=== PATIENT | male | born 1965 | race African-American/Black ===

== ENCOUNTER 2017-01-05 17:01 | Inpatient (IN) | payer MEDICARE, MEDICAID ==
[~2017-01-05] VITALS: Ht 177.8 cm; Wt 134.7 kg
[~2017-01-05 17:01] MED LIST: BALANCED SALT IRRIG SOLN 15ML ONE; BENA1TAB2 PO; BUPIVACAINE HCL/PF 0.75% (7.5MG/ML) 10ML ONE; BUSP15TA3 PO; CALC-1042 PO; CEPH-569 PO; CHOL400T11 PO; CIPR1DRO2 OP; CIPROFLOXACIN 0.3% OPHTH SOLN 2.5ML ONE; GABA-531 PO; LIDOCAINE HCL 2%/EPINEPHRINE 1:100,000 20 ML VIAL INFIL ONE; METF500T4 PO; METH50TA5 PO; NEO/3.5O OP; NEO/POLYMYX B SULF/DEXAMETH OPHTH OINT 3.5GM ONE; NEPT50 PO; PRED1DRO OP; PREDNISOLONE ACETATE 1% OPHTH DROPS 1ML ONE; SULF-165 PO
[2017-01-05] MEDS ORDERED: MORPHINE SULFATE 4 MG/ML CPJ (NOT FOR IM USE) IV ONE (17:15)
[2017-01-05] MEDS ORDERED: CEFAZOLIN 1000MG PREMIX 50 ML IV ONE (17:15)
[2017-01-05] MEDS ORDERED: MORPHINE SULFATE 2 MG/ML CPJ (NOT FOR IM USE) IV ONE (17:43)
[2017-01-05 18:15] LABS: BASOPHILS % 1.4 % (0.0-2.0); EOSINOPHILS % 1.8 % (0.0-5.0); HEMATOCRIT. 42.3 % (42.0-52.0); HEMOGLOBIN. 14.3 g/dL (14.0-18.0); LYMPHOCYTES % 35.7 % (20.0-50.0); MEAN CORPUSCULAR HEMOGLOBIN 32.9 pg (28.0-32.0); MEAN CORPUSCULAR VOLUME 97.5 fL (80.0-94.0); MONOCYTES % 10.1 % (2.0-8.0); PLATELET 183 x1000/uL (130-400); RED BLOOD CELL COUNT 4.33 mill/uL (4.7-6.1); RED CELL DISTRIBUTION WIDTH 12.1 % (11.6-14.6)
[2017-01-05 18:29] LABS: CARBON DIOXIDE 24 mEq/L (21-32); CHLORIDE 111 mEq/L (98-107)
[2017-01-05] MEDS ORDERED: HYALURONATE SODIUM 14 MG/ML 0.85ML SYRINGE IO ONE (21:05)
[2017-01-05] MEDS ORDERED: MEPERIDINE HCL/PF 25MG/ML CPJ IV PRN (22:00)
[2017-01-05] MEDS ORDERED: LABETALOL HCL 20MG/4ML CARPUJECT IV PRN (22:00)
[2017-01-05] MEDS ORDERED: ONDANSETRON HCL 4MG/2ML VIAL IV PRN ×2 (22:00→22:30)
[2017-01-05] MEDS ORDERED: HYDROMORPHONE HCL/PF 2MG/ML CPJ IV PRN (22:00)
[2017-01-05] MEDS ORDERED: TRIAMCINOLONE ACETONIDE 40MG/ML 1ML VIAL ONE (22:12)
[2017-01-05] MEDS ORDERED: PROPOFOL 200MG/20ML VIAL IV ONE (22:24)
[2017-01-05] MEDS ORDERED: ROCURONIUM BROMIDE 10MG/ML VIAL 5ML IV ONE (22:24)
[2017-01-05] MEDS ORDERED: GLYCOPYRROLATE 0.2 MG/ML 2ML VIAL ONE ×2 (22:24→22:39)
[2017-01-05] MEDS ORDERED: NEOSTIGMINE METHYLSULFATE 1MG/ML 10 ML VIAL ONE (22:24)
[2017-01-05] MEDS ORDERED: SUCCINYLCHOLINE CHLORIDE 200MG/10ML VIAL IV ONE (22:24)
[2017-01-05] MEDS ORDERED: DEXAMETHASONE 4MG/ML 1ML VIAL ONE (22:24)
[2017-01-05] MEDS ORDERED: LIDOCAINE HCL 1% 20ML VIAL (Pyxis) INJ ONE (22:24)
[2017-01-05] MEDS ORDERED: ONDANSETRON HCL 4MG/2ML VIAL ONE (22:26)
[2017-01-05] MEDS ORDERED: DEXTROSE 50% WATER 50ML SYRINGE IV PRN (22:30)
[2017-01-05] MEDS ORDERED: DOCUSATE SODIUM 100MG CAPSULE PO PRN (22:30)
[2017-01-05] MEDS ORDERED: ZOLPIDEM TARTRATE 5MG TABLET PO PRN (22:30)
[2017-01-05] MEDS ORDERED: LORAZEPAM 0.5MG TABLET PO PRN (22:30)
[2017-01-05] MEDS ORDERED: IPRATROPIUM/ALBUTEROL 0.5-3(2.5)MG/3ML NEB INH PRN (22:30)
[2017-01-05] MEDS ORDERED: CLONIDINE 0.1MG TABLET PO PRN (22:30)
[2017-01-05] MEDS ORDERED: DIPHENHYDRAMINE 50MG/ML VIAL IV PRN (22:30)
[2017-01-05] MEDS ORDERED: ACETAMINOPHEN 325MG TABLET PO PRN (22:30)
[2017-01-05] MEDS ORDERED: NA PHOS,M-B/NA PHOS,DI-BA ENEMA 118ML PR PRN (22:30)
[2017-01-05] MEDS ORDERED: GUAIFENESIN 200MG/10ML SUGAR FREE UDC PO PRN (22:30)
[2017-01-05] MEDS ORDERED: TRAMADOL 50MG TABLET PO PRN (22:30)
[2017-01-05] MEDS ORDERED: MAGNESIUM/ALUMINUM HYDROXIDE/SIMETHICONE 30ML UDC PO PRN (22:30)
[2017-01-05] MEDS ORDERED: CEFAZOLIN SODIUM 1000MG/VIAL ONE (22:40)
[2017-01-05] MEDS ORDERED: SODIUM CHLORIDE 0.9% 10ML VIAL ONE (22:40)
[2017-01-06] VITALS (7 sets, daily range): BP systolic 97–130; BP diastolic 53–79
[2017-01-06] MEDS: BLOOD SUGAR DIAGNOSTIC STRIP TEST SCH ×4 (06:37→20:38)
[2017-01-06] MEDS: INSULIN LISPRO 100 UNITS/ML SUBCUT SCH ×4 (06:45→20:52)
[2017-01-06] MEDS: PREDNISOLONE ACETATE 1% OPHTH DROPS 1ML RIGHTEYE SCH ×6 (06:48→23:42)
[2017-01-06] MEDS: FAMOTIDINE 20MG/2ML VIAL IV SCH ×2 (08:18→20:48)
[2017-01-06] MEDS: CIPROFLOXACIN 0.3% OPHTH SOLN 2.5ML RIGHTEYE SCH ×4 (08:18→20:48)
[2017-01-06] MEDS: MORPHINE SULFATE 2 MG/ML CPJ (NOT FOR IM USE) IV PRN ×3 (09:49→20:50)
[2017-01-06] MEDS ORDERED: CEFAZOLIN 1000MG PREMIX 50 ML IV ONE (11:45)
[2017-01-06] MEDS: CEFAZOLIN 1000MG PREMIX 50 ML IV SCH ×2 (12:44→21:02)
[2017-01-06] MEDS: NEO/POLYMYX B SULF/DEXAMETH OPHTH OINT 3.5GM RIGHTEYE SCH (21:02)
[2017-01-07] VITALS: BP 103/70
[2017-01-07] MEDS: CEFAZOLIN 1000MG PREMIX 50 ML IV SCH ×3 (03:17→20:52)
[2017-01-07] MEDS: MORPHINE SULFATE 2 MG/ML CPJ (NOT FOR IM USE) IV PRN ×5 (03:18→20:57)
[2017-01-07 04:00] VITALS: BP 108/73
[2017-01-07] MEDS: PREDNISOLONE ACETATE 1% OPHTH DROPS 1ML RIGHTEYE SCH ×3 (05:45→18:25)
[2017-01-07] MEDS: BLOOD SUGAR DIAGNOSTIC STRIP TEST SCH ×4 (06:11→20:53)
[2017-01-07] MEDS: INSULIN LISPRO 100 UNITS/ML SUBCUT SCH ×4 (06:29→22:00)
[2017-01-07 08:00] VITALS: BP 110/74
[2017-01-07] MEDS: FAMOTIDINE 20MG/2ML VIAL IV SCH ×2 (08:27→20:53)
[2017-01-07] MEDS: CIPROFLOXACIN 0.3% OPHTH SOLN 2.5ML RIGHTEYE SCH ×4 (08:28→20:53)
[2017-01-07] MEDS: NEO/POLYMYX B SULF/DEXAMETH OPHTH OINT 3.5GM RIGHTEYE SCH ×3 (08:28→20:53)
[2017-01-07 10:06] VITALS: BP 104/70
[2017-01-07] MEDS: GABAPENTIN 300MG CAPSULE PO SCH ×2 (13:00→21:55)
[2017-01-07 20:00] VITALS: BP 111/57
[2017-01-08] VITALS: BP 103/70
[2017-01-08] MEDS: PREDNISOLONE ACETATE 1% OPHTH DROPS 1ML RIGHTEYE SCH ×3 (00:42→12:30)
[2017-01-08] MEDS: MORPHINE SULFATE 2 MG/ML CPJ (NOT FOR IM USE) IV PRN ×4 (00:43→12:40)
[2017-01-08 04:00] VITALS: BP 125/82
[2017-01-08] MEDS: CEFAZOLIN 1000MG PREMIX 50 ML IV SCH ×2 (06:00→12:30)
[2017-01-08] MEDS: GABAPENTIN 300MG CAPSULE PO SCH (06:01)
[2017-01-08] MEDS: BLOOD SUGAR DIAGNOSTIC STRIP TEST SCH ×2 (06:47→12:30)
[2017-01-08] MEDS: INSULIN LISPRO 100 UNITS/ML SUBCUT SCH ×2 (06:50→12:29)
[2017-01-08 07:30] VITALS: BP 122/80
[2017-01-08] MEDS: FAMOTIDINE 20MG/2ML VIAL IV SCH ×2 (08:06→09:43)
[2017-01-08] MEDS: NEO/POLYMYX B SULF/DEXAMETH OPHTH OINT 3.5GM RIGHTEYE SCH (08:06)
[2017-01-08] MEDS: CIPROFLOXACIN 0.3% OPHTH SOLN 2.5ML RIGHTEYE SCH ×2 (08:07→12:30)
[2017-01-08 12:19] VITALS: BP 126/92
[2017-01-08 13:27] VITALS: BP 124/77
== END 2017-01-08 15:00 | disposition home or self-care (01) | DRG 116 ==
LOC: ER 17:30 → ENRESERV 18:17 → 8WST 22:02 → EDBEDREQTM 22:13 → EDBEDREQ 22:13
PROVIDERS: ADMIT Internal Medicine; ATTEND Internal Medicine
PROC: 08Q8XZZ Repair Right Cornea, External Approach (ICD-10-PCS; 2017-01-05)
PROC: 08T43ZZ Resection of Right Vitreous, Percutaneous Approach (ICD-10-PCS; principal; 2017-01-05 21:05)
DX: S05.21XA Ocular laceration and rupture with prolapse or loss of intraocular tissue, right eye, initial encounter (principal); Z68.41 Body mass index [BMI] 40.0-44.9, adult; E11.9 Type 2 diabetes mellitus without complications; H54.62 Unqualified visual loss, left eye, normal vision right eye; I10 Essential (primary) hypertension; W22.8XXA Striking against or struck by other objects, initial encounter; H21.511 Anterior synechiae (iris), right eye; E66.9 Obesity, unspecified; Z94.7 Corneal transplant status; Y93.89 Activity, other specified; Y92.89 Other specified places as the place of occurrence of the external cause; Y99.8 Other external cause status; Z79.899 Other long term (current) drug therapy
CPT/HCPCS: 36415; 80053; 80061; 82962; 83036; 85025; 93005; 96374; 96375; 97161; 99285; A4216; J0330; J0690; J1100; J1815; J2270; J2405; J2704; J2710; J3301; J3490; J7030; J7050